=== PATIENT | male | born 1995 | race Two or more races ===

== ENCOUNTER 2018-12-24 20:40 | Emergency (ER) | payer OTHER ==
--- NOTE | 2018-12-24 20:50 | ER Document Report ---
ED Medical Screen (RME) - General Chief Complaint: Needle Stick Exposure Stated Complaint: NEEDLE STICK Time Seen by Provider: 12/24/18 20:44 Mode of Arrival: Ambulatory Information source: Patient Notes: 23-year-old male presents to ED for complaint of needlestick while drawing patient's blood. He is alert oriented respirations regular nonlabored speaking in full sentences he does not smoke drink or use any drugs. He is here to get his blood drawn and treatment for a needlestick. I have greeted and performed a rapid initial assessment of this patient. A comprehensive ED assessment and evaluation of the patient, analysis of test results and completion of medical decision making process will be conducted by an additional ED providers. - Related Data Allergies/Adverse Reactions: No Known Allergies Allergy (Unverified 12/24/18 20:51)
[2018-12-24 21:00] VITALS: BP 137/58
--- NOTE | 2018-12-24 21:11 | ER Document Report ---
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 Patient states that he was giving the medication to the patient and he pulled the needle out and accidentally poked himself in his right forearm. Patient is asking to be empirically treated for HIV. - Related Data Allergies/Adverse Reactions: No Known Allergies Allergy (Unverified 12/24/18 20:51) Past Medical History - General Information source: Patient - Social History Smoking Status: Never Smoker Frequency of alcohol use: None Family History: Reviewed & Not Pertinent Patient has suicidal ideation: No Patient has homicidal ideation: No Review of Systems - Review of Systems Notes: REVIEW OF SYSTEMS: CONSTITUTIONAL : Denies recent illness. Denies recent unintentional weight loss. Denies fever, chills, or sweats. EENT: Denies eye, ear, throat, or mouth pain, discharge, or symptoms. Denies nasal or sinus congestion. CARDIOVASCULAR: Denies chest pain. RESPIRATORY: Denies shortness of breath, cough, congestion, difficulty breathing, or wheezing. GASTROINTESTINAL: Denies nausea, vomiting, and diarrhea. Denies abdominal pain. Denies constipation. GENITOURINARY: Denies difficulty urinating, burning, blood in urine, urgency or frequency. MUSCULOSKELETAL: Denies neck and back pain. Denies joint pain or swelling. SKIN: See HPI. HEMATOLOGIC : Denies easy bruising or bleeding. LYMPHATIC: Denies swollen, painful, enlarged glands. NEUROLOGICAL: Denies no numbness or tingling denies weakness. Denies headache. Denies altered mental status. Denies alteration in speech. PSYCHIATRIC: Denies stress, anxiety, alteration in sleep patterns, or depression. All other systems reviewed and negative. Physical Exam - Vital signs Vitals: Temp Pulse Resp BP Pulse Ox 98.1 F 73 16 137/58 H 99 12/24/18 20:58 12/24/18 20:58 12/24/18 20:58 12/24/18 20:58 12/24/18 20:58 - Notes Notes: PHYSICAL EXAMINATION: GENERAL: Appears well, healthy, well-nourished, no acute distress. HEAD: Normocephalic, atraumatic. EYES: PERRL, conjunctiva normal, all extraocular movements intact, sclera nonicteric ENT: Moist mucous membranes. EXTREMITIES: Normal strength and range of motion, no pitting or edema. No cyanosis. NEUROLOGICAL: Moves all extremities upon command. Strength 5/5 in all extremities. PSYCH: Normal mood, normal affect. SKIN: Warm, dry. No rash, lesions, ulcerations noted. Normal skin turgor. Puncture wound noted to right forearm from medial. Small amount of ecchymosis noted. No cellulitis noted. Course - Re-evaluation Re-evalutation: 12/24/18 Patient has opted to be empirically treated with Truvada and Isentress. Post prophylactic HIV exposure documentation given to the patient. Patient will follow up with a primary care provider in regards to this visit. Follow-up precautions were given. Verbal discharge instructions were given to the patient. They verbalized understanding. They are stable for discharge. - Vital Signs Vital signs: Temp Pulse Resp BP Pulse Ox 98.1 F 73 16 137/58 H 99 12/24/18 20:58 12/24/18 20:58 12/24/18 20:58 12/24/18 20:58 12/24/18 20:58 Discharge - Discharge Clinical Impression: Needlestick injury accident, On pre-exposure prophylaxis for HIV Condition: Stable Disposition: HOME, SELF-CARE Additional Instructions: You are seen today in the emergency department after a needlestick injury. You are choosing to be prophylactically treated for HIV. Please take your medications as prescribed. Please follow-up with your primary care provider. Prescriptions: Raltegravir Potassium [Isentress 400 mg Tablet] 400 mg PO BID #56 tablet Emtricitabine/Tenofovir [Truvada Tablet] 1 each PO DAILY #28 tablet
[2018-12-24] MEDS ORDERED: EMTRICITABINE/TENOFOVIR 200-300 MG TABLET PO ONE (21:55)
[2018-12-24] MEDS ORDERED: RALTEGRAVIR POTASSIUM 400 MG TABLET PO ONE (21:56)
== END 2018-12-24 22:19 | disposition home or self-care (01) ==
LOC: ER 20:40
DX: S51.831A Puncture wound without foreign body of right forearm, initial encounter (principal); W46.1XXA Contact with contaminated hypodermic needle, initial encounter; Y92.239 Unspecified place in hospital as the place of occurrence of the external cause; Y99.0 Civilian activity done for income or pay
CPT/HCPCS: 99282

== ENCOUNTER 2019-12-23 23:04 | Emergency (ER) | payer OTHER ==
[2019-12-23] MEDS ORDERED: DIPH/PERTUSS(ACELL)/TETANUS VAC/PF 0.5 ML SYR (>=10YO) IM ONE (23:15)
[2019-12-23 23:16] VITALS: BP 134/62
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
== END 2019-12-23 23:49 | disposition home or self-care (01) ==
LOC: ER 23:04
DX: S10.91XA Abrasion of unspecified part of neck, initial encounter (principal); R42 Dizziness and giddiness; Y08.89XA Assault by other specified means, initial encounter; Y04.2XXA Assault by strike against or bumped into by another person, initial encounter; Y99.0 Civilian activity done for income or pay; Z23 Encounter for immunization
CPT/HCPCS: 90471; 90715; 99284

== ENCOUNTER 2020-01-14 22:35 | Emergency (ER) | payer OTHER ==
[2020-01-14 22:52] VITALS: BP 122/73
--- NOTE | 2020-01-14 23:36 | ER Document Report ---
ED General - General Chief Complaint: Allergic Reaction Stated Complaint: OTHER Time Seen by Provider: 01/14/20 22:36 Primary Care Provider: YAMILKA RALPH NP [Primary Care Provider] - Follow up as needed TRAVEL OUTSIDE OF THE [place] IN LAST 30 DAYS: No - HPI Notes: Patient is a 24-year-old male who presents to the emergency department for evaluation of a possible allergic reaction. He states that the dryer sheets used for his laundry were changed recently. He started having itching and hives in the areas of his shirt and his undergarments. He changed to them. He took s ome Benadryl, Decadron, Pepcid. He was continuing to itch, so is brought here to the emergency department. Denies any swelling in his lips or mouth. He denies any difficulty breathing or swallowing. He did not have any hives on his legs, but states that those pants had not been washed recently. - Related Data Allergies/Adverse Reactions: No Known Allergies Allergy (Verified 12/23/19 23:07) Home Medications: None Past Medical History - General Information source: Patient - Social History Smoking Status: Never Smoker Chew tobacco use (# tins/day): No Frequency of alcohol use: Rare Drug Abuse: None Family History: Reviewed & Not Pertinent, Malignancy - Skin cancer in father - Past Medical History Cardiac Medical History: Denies: Hx Coronary Artery Disease Pulmonary Medical History: Denies: Hx COPD Neurological Medical History: Denies: Hx Cerebrovascular Accident Endocrine Medical History: Denies: Hx Diabetes Mellitus Type 1, Hx Diabetes Mellitus Type 2 Renal/ Medical History: Denies: Hx End Stage Renal Disease Malignancy Medical History: Reports None - Immunizations Immunizations up to date: Yes Hx Diphtheria, Pertussis, Tetanus Vaccination: Yes - 12/23/2019 Review of Systems - Review of Systems Constitutional: No symptoms reported EENT: No symptoms reported Cardiovascular: No symptoms reported Respiratory: No symptoms reported Gastrointestinal: No symptoms reported Genitourinary: No symptoms reported Musculoskeletal: No symptoms reported Skin: See HPI Neurological/Psychological: No symptoms reported -: Yes All other systems reviewed and negative Physical Exam - Vital signs Vitals: Temp Pulse Resp BP Pulse Ox 98.6 F 90 16 122/73 98 01/14/20 22:48 01/14/20 22:48 01/14/20 22:48 01/14/20 22:48 01/14/20 22:48 - Notes Notes: This is a 24-year-old male, who appears his stated age, no acute distress. Appears pale, but no tachypnea. Vital signs reviewed, please refer to chart. Head is normocephalic, atraumatic. Pupils equal round, reactive to light. Oral mucosa is moist. There is no edema of the lips, tongue, posterior pharynx. Neck is supple without meningismus. Heart is regular rate and rhythm. Lungs are clear to auscultation bilaterally. Abdomen is soft, nontender, normoactive bowel sounds throughout. Extremities without cyanosis, clubbing. Posterior calves are nontender. Peripheral pulses are equal. Skin is warm and dry. Mild urticaria is noted to the left antecubital region, right flank, left thorax from T2-T5. Patient is awake, alert, neurological exam is nonfocal. Course - Re-evaluation Re-evalutation: 01/14/20 23:34 Patient presents emergency department for evaluation. He was seen for an allergic reaction. He seems to already have an improvement in his symptoms from appropriate medication at home. I will write him for dexamethasone. He is told to use [id number] antihistamines as needed for itching. He is told that he should rewash all of his clothing, as it is likely that he reacted to the new dryer sheets. He voiced understanding. He is to return to the ED with worsening or new concerning symptoms of any sort. - Vital Signs Vital signs: Temp Pulse Resp BP Pulse Ox 98.6 F 90 16 122/73 98 01/14/20 22:48 01/14/20 22:48 01/14/20 22:48 01/14/20 22:48 01/14/20 22:48 Discharge - Discharge Clinical Impression: Allergic reaction Qualifiers: Encounter type: initial encounter Qualified Code(s): T78.40XA - Allergy, unspecified, initial encounter Condition: Stable Disposition: HOME, SELF-CARE Instructions: Acute Allergic Reaction ([facility]) Additional Instructions: Rewash all your clothing without dryer sheets. Take medication as prescribed. You can use [id number] antihistamines, like Zyrtec and Benadryl, as needed for itching. If you develop swelling of the mouth or tongue, difficulty breathing or swallowing, or any other new or concerning symptoms, please return immediately to the emergency department for evaluation. Referrals: YAMILKA RALPH NP [Primary Care Provider] - Follow up as needed
== END 2020-01-15 00:20 | disposition home or self-care (01) ==
LOC: ER 22:35
DX: T78.40XA Allergy, unspecified, initial encounter (principal); L50.9 Urticaria, unspecified
CPT/HCPCS: 99283